=== PATIENT | male | born 1970 | race Two or more races ===

== ENCOUNTER 2024-08-13 21:52 | Emergency (ER) | payer OTHER ==
[~2024-08-13] VITALS: Ht 180.3 cm; Wt 68.0 kg
[2024-08-13] MEDS ORDERED: METHOCARBAMOL500 MG PO (22:01)
[2024-08-13] MEDS ORDERED: VITAMIN D310 MCG/1 M PO (22:01)
[2024-08-13] MEDS ORDERED: GRALISE600 MG PO (22:01)
[2024-08-13] MEDS ORDERED: MELOXICAM15 MG PO (22:01)
[2024-08-14] MEDS ORDERED: 0.9 % SODIUM CHLORIDE 1,000 ML IV STA (01:48)
[2024-08-14 02:57] LABS: PH,URINE 6.5 (5.0-8.0); URINE APPEARANCE Clear; URINE BILIRRUBIN Negative (NEGATIVE); URINE BLOOD Moderate; URINE COLOR Yellow; URINE GLUCOSE Negative (NEGATIVE); URINE KETONE Negative (NEGATIVE); URINE LEUKOCYTE Negative; URINE NITRATE Negative; URINE PROTEIN Negative (NEGATIVE)
[2024-08-14 03:01] LABS: URINE BACTERIA 4.8 uL (0.0-1933); URINE EPITHELIAL CELLS 1.4 uL (0.0-38.8); URINE RBC 54.1 uL (0.0-20.8); URINE WBC 3.9 uL (0.0-23.2)
[2024-08-14 04:16] LABS: HEMATOCRIT 38.5 % (39.0-48.0); HEMOGLOBIN 13.5 g/dL (13-16.00); MEAN CELL VOLUME 89.3 fL (80.0-100.00); MEAN CORPUSCULAR HEMOGLOBIN 31.3 pg (27.00-32.0); PLATELET COUNT 178 K/uL (150-450); RED BLOOD COUNT 4.31 M/uL (4.00-6.00); RED CELL DISTRIBUTION WIDTH 14.4 % (11.5-14.5)
== END 2024-08-14 07:39 | disposition home or self-care (01) ==
LOC: ER 21:55
DX: R53.81 Other malaise (principal); M79.604 Pain in right leg; M79.605 Pain in left leg
CPT/HCPCS: 36415; 96365; 96366; 99282; J7030

== ENCOUNTER 2024-11-02 22:05 | Emergency (ER) | payer OTHER ==
[~2024-11-02] VITALS: Ht 162.6 cm; Wt 86.2 kg
[~2024-11-02 22:05] MED LIST: GRALISE600 MG PO; MELOXICAM15 MG PO; METHOCARBAMOL500 MG PO; VITAMIN D310 MCG/1 M PO
[2024-11-02] MEDS ORDERED: FAMOtidine 10 MG/ML (4ML VIAL) IV ONE (23:00)
[2024-11-02] MEDS ORDERED: CEFTRIAXONE SODIUM 1,000 MG VIAL IV ONE (23:00)
[2024-11-02] MEDS ORDERED: 0.9 % SODIUM CHLORIDE 1,000 ML IV ONE (23:00)
[2024-11-02] MEDS ORDERED: FAMOTIDINE/PF 20 MG/2 ML VIAL ONE (23:13)
[2024-11-02] MEDS ORDERED: CEFTRIAXONE SODIUM 1,000 MG VIAL ONE (23:14)
[2024-11-02] MEDS ORDERED: THIAMINE HCL 100 MG/ML 2 ML VIAL IV ONE (23:45)
[2024-11-02] MEDS ORDERED: THIAMINE HCL 100 MG/ML 2 ML VIAL ONE (23:51)
[2024-11-03 00:37] LABS: EOS # 0.22 (0.04-0.54); EOS % 2.9 % (0.7-7.0); HEMATOCRIT 37.1 % (40.1-51.0); HEMOGLOBIN 12.3 g/dL (13.7-17.5); LYMPH # 1.64 (1.18-3.74); LYMPH % 21.3 % (19.3-53.1); MEAN CORPUSCULAR HEMOGLOBIN 29.7 pg (25.6-32.2); MONO % 6.5 % (4.7-12.5); NEUT # 5.23 (1.56-6.13); PLATELET COUNT 219 K/uL (163-369); RED BLOOD COUNT 4.14 M/uL (4.63-6.08); RED CELL DISTRIBUTION WIDTH 13.5 % (11.6-14.4)
[2024-11-03 00:50] LABS: INR 1.07; PARTIAL THROMBOPLASTIN TIME 27.6 SECONDS (22.0-34.0); PROTHROMBIN TIME 11.6 SECONDS (9.0-11.5)
[2024-11-03 00:56] LABS: ALBUMIN 3.5 gm/dL (3.4-5.0); BILIRUBIN TOTAL 0.6 mg/dL (0.3-1.2); CALCIUM 9.1 mg/dL (8.5-10.1); CREATININE SERUM 0.8 mg/dL (0.70-1.30); GFR 101.51; GLOBULINA 3.5 G/DL (2.4-3.5); POTASSIUM 3.82 mEq/L (3.5-5.1)
[2024-11-03] MEDS ORDERED: DIPHTH,PERTUSS(ACELL),TET VAC 0.5 ML SYRINGE IM ONE (03:00)
[2024-11-03] MEDS ORDERED: TETANUS & DIPHTHERIA TOX,ADULT 0.5 ML VIAL IM STA (03:01)
[2024-11-03] MEDS ORDERED: POVIDONE-IODINE 118 ML BOTT TOP ONE (03:04)
[2024-11-03] MEDS ORDERED: CEPHALEXIN500 MG PO (03:19)
[2024-11-03] MEDS ORDERED: MUPIROCIN1 G1 TOP (03:19)
== END 2024-11-03 03:26 | disposition home or self-care (01) ==
LOC: ER 22:05
PROVIDERS: General Practice
DX: S09.8XXA Other specified injuries of head, initial encounter (principal); Y08.89XA Assault by other specified means, initial encounter; Y93.89 Activity, other specified; Y92.89 Other specified places as the place of occurrence of the external cause; I10 Essential (primary) hypertension; G20.A1 Parkinson's disease without dyskinesia, without mention of fluctuations
CPT/HCPCS: 36415; 70486; 96365; 96366; 99284; J0696; J3420; J3490; J7030

== ENCOUNTER → 2024-11-06 | Emergency (ER) | payer OTHER ==
[~2024-11-06] VITALS: Ht 175.3 cm; Wt 63.5 kg
[~2024-11-06] MED LIST changes: +CEPHALEXIN500 MG PO; +MUPIROCIN1 G1 TOP; +hydrOXYzine PAMOATE 25 MG CAPSULE PO ONE
[2024-11-06 13:50] LABS: CALCIUM 9.1 mg/dL (8.5-10.1); CREATININE SERUM 0.74 mg/dL (0.70-1.30); GFR 111.07; POTASSIUM 4.25 mEq/L (3.5-5.1)
[2024-11-06 14:00] LABS: BASO % 0.6 % (0.1-1.2); EOS # 0.11 (0.04-0.54); EOS % 1.2 % (0.7-7.0); HEMATOCRIT 39.7 % (40.1-51.0); HEMOGLOBIN 13.1 g/dL (13.7-17.5); LYMPH # 1.04 (1.18-3.74); LYMPH % 11.3 % (19.3-53.1); MEAN CORPUSCULAR HEMOGLOBIN 29.2 pg (25.6-32.2); MONO # 0.57 (0.24-0.82); MONO % 6.2 % (4.7-12.5); NEUT # 7.43 (1.56-6.13); NEUT % 80.4 % (34.0-71.1); PLATELET COUNT 219 K/uL (163-369); RED BLOOD COUNT 4.48 M/uL (4.63-6.08); RED CELL DISTRIBUTION WIDTH 13.4 % (11.6-14.4)
[2024-11-06 17:31] LABS: URINE APPEARANCE Clear; URINE BILIRRUBIN Negative (NEGATIVE); URINE BLOOD Negative; URINE COLOR Yellow; URINE GLUCOSE Negative (NEGATIVE); URINE KETONE Negative (NEGATIVE); URINE LEUKOCYTE Negative; URINE NITRATE Negative; URINE PROTEIN Negative (NEGATIVE); URINE UROBILINOGEN 0.2 E.U./dl
[2024-11-06 18:12] LABS: URINE BACTERIA 2.4 uL (0.0-1933); URINE CAST 0.14 uL (0.0-1.40); URINE EPITHELIAL CELLS 0.3 uL (0.0-38.8)
== END | disposition left against medical advice (07) ==
LOC: ER 10:28
PROVIDERS: General Practice
DX: F41.9 Anxiety disorder, unspecified (principal)

== ENCOUNTER 2024-11-09 14:05 | Emergency (ER) | payer OTHER ==
[~2024-11-09] VITALS: Ht 182.9 cm; Wt 63.5 kg
[~2024-11-09 14:05] MED LIST changes: -hydrOXYzine PAMOATE 25 MG CAPSULE PO ONE
[2024-11-09] MEDS ORDERED: COZAAR25 MG PO (14:34)
[2024-11-09] MEDS ORDERED: KETOROLAC TROMETHAMINE 60 MG VIAL IM ONE ×2 (18:06→18:15)
[2024-11-09] MEDS ORDERED: hydrOXYzine PAMOATE 25 MG CAPSULE PO ONE ×2 (18:06→18:15)
== END 2024-11-09 18:25 | disposition home or self-care (01) ==
LOC: ER 14:33
DX: R52 Pain, unspecified (principal); F41.9 Anxiety disorder, unspecified; G20.A1 Parkinson's disease without dyskinesia, without mention of fluctuations

== ENCOUNTER → 2024-11-10 | Emergency (ER) | payer OTHER ==
[~2024-11-10] MED LIST changes: +COZAAR25 MG PO
== END | disposition left against medical advice (07) ==
LOC: ER 09:59
DX: Z53.21 Procedure and treatment not carried out due to patient leaving prior to being seen by health care provider (principal)